=== PATIENT | male | born 1985 | race Caucasian/White ===

== ENCOUNTER → 2021-09-22 | Outpatient (CLI) | payer OTHER ==
[~2021-09-22] MED LIST: BUPIVACAINE MPF 0.5% 10 ML VIAL. INT ART ONE; IOHEXOL 300 MG/ML 50 ML VIAL. INT ART ONE; LIDOCAINE 1% Multi-Dose 20 ML VIAL. ID ONE; LISI1TAB35 PO; methylPREDNISolone ACETATE 40 MG/ML VIAL. INT ART ONE
--- NOTE | 2021-09-22 16:50 | KCIC ---
EXAM: into the injection WITH Fluoroscopic guidance DATE: 09/22/2021 10:35 AM CLINICAL HISTORY: Reason: Rt shoulder pain, limited ROM. COMPARISON: None pertinent TECHNIQUE: The patient was informed of the indications and alternatives for this procedure as well as risks and benefits. No immediate contraindication identified. The patient provided informed, written consent. Laterality was confirmed by the entire team following a time out. Following initial into the localization, a suitable area was sterilely prepped and draped. Local anes thesia was administered with 1% xylocaine. With intermittent fluoroscopic observation, a 22-gauge spi nal needle was advanced into the into the sheath/capsule with confirmation of intra-synovial position with infusion of less than 1 cc iodinated contrast. Subsequent infusion of a solution containing 80 mg Depo-Medrol, 2 mL bupivacaine 0.5 percent. Hemostasis with local pressure. Local clinical exam neg ative for immediate complication. Patient informed re local potential signs or symptoms that may indicate need to return to ER/Ordering physician for further evaluation. Patient informed re precautionary measures after intra-synovial in jection of anesthetic. Patient informed re potential for short term increase local symptomatology due to steroid flare. Patient expressed understanding. Performing Physicians: Dr. Damon Alas Blood Loss: 0 cc Pre-procedural Pain Scale: 3 Post-procedural Pain Scale: 1-2 Total Fluoroscopy time: 18 seconds Total spot images taken: 0 Total last image hold screen save images taken: 1 IMPRESSION: Successful steroid and anesthetic injection into the biceps tenosynovium per clinical request. Electronically signed by: Shankar Alas MD (09/22/2021 4:48 PM) [id number] CUSTOM FIELD 1
== END | disposition home or self-care (01) ==
LOC: KCIC 10:21
PROVIDERS: ATTEND Orthopaedic Surgery Sports Medicine
DX: M25.511 Pain in right shoulder (principal); Z79.899 Other long term (current) drug therapy
CPT/HCPCS: 20610; 77002; J1030; J3490; Q9967